=== PATIENT | male | born 1945 | race Caucasian/White ===

== ENCOUNTER → 2022-06-23 09:24 | Outpatient (CLI) | payer MEDICARE, SELFPAY ==
[2022-06-23 11:25] LABS: COVID19 -Nasal RAPID Negative (Negative)
== END ==
PROVIDERS: PCP Family Medicine; Visit Provider Surgery
DX: Z01.812 Encounter for preprocedural laboratory examination (principal); Z20.822 Contact with and (suspected) exposure to COVID-19
CPT/HCPCS: 87635; C9803

== ENCOUNTER 2022-06-24 07:33 | Day surgery (SDC) | payer MEDICARE, SELFPAY ==
--- NOTE | 2022-06-24 | PATH_ITS ---
[facility] Accession Number: [id number] . 01 Material submitted: . PART A: sigmoid colon - SIGMOID POLYP PART B: rectum - RECTAL PART C: rectum - RECTAL POLYP . 01 Diagnosis: A. Sigmoid Colon, Polyp, Biopsy: Hyperplastic polyp. . B. Rectum, Biopsy: Colonic mucosa with no diagnostic abnormality. Negative for active, chronic, and microscopic colitis. Negative for dysplasia and malignancy. . C. Rectum, Polyp, Biopsy: Hyperplastic polyp with features of mucosal prolapse. MRV 06/27/2022 1215 Local . 01 Electronically signed: . Anahi Medina MD, Pathologist NPI- [id number] . 01 Gross description: . A. Received in formalin, labeled with the patient's name, , and sigmoid polyps, and consists of a single irregular dutta soft tissue fragment measuring 0.3 cm in greatest dimension. Submitted entirely in cassette A1. B. Received in formalin, labeled with the patient's name, and rectal biopsies, and consists of five irregular dutta, soft tissue fragments ranging from 0.3 cm to 0.5 cm in greatest dimension. Submitted entirely in cassette B1. C. Received in formalin, labeled with the patient's name, and rectal polyp, and consists of two irregular dutta, soft tissue fragments ranging from 0.2 cm to 0.4 cm in greatest dimension. Submitted entirely in cassette C1. ([id number]) /WILFRED 06/25/20221954 Local . 01 Pathologist provided ICD-10: R19.5, K63.5, K62.1 . 01 CPT . 357366, 378848, 213929 Specimen Comment: A courtesy copy of this report has been sent to [facility] Pathology Performed at: 01 [facility] [address], [place], [place] [id number] MD Romeo Kraus MD Phone: [phone]
[2022-06-24] MEDS: FLEETS ENEMA 1 EACH PR (08:09)
[2022-06-24 08:18] VITALS: BMI 22.5
[2022-06-24 08:26] VITALS: BP 148/88; PULSE 102; RESP 20; TEMP 36.2; O2SAT 95
[2022-06-24] MEDS: LACTATED RINGERS 1,000 ML 42 ML IV ×2 (08:31→10:02)
--- NOTE | 2022-06-24 08:54 | PM.HP.1 ---
History of Present Illness History of Present Illness Chief complaint: [facility] Narrative: Mr. Drake presents today for a screening colonoscopy. Has had a couple of scopes in the past his last 1 was 9 or 10 years ago. Thinks he had 1 polyp, but was given a 10 year follow-up. He has no family history of colon cancer he is not had any bleeding or changes in his bowel movements on occasion he has urgency but otherwise no issues. Not take a fiber supplement or any bowel regimen. Has had an umbilical hernia repair years ago and surgery on his ring finger from a trauma while working at [employer]. He presents today mainly because he has a positive Cologuard test. His PCP is Dr. Erickson in [place] Patient History Family & Social History Social History: household members spouse Tobacco & Substance use: Smoking Status Current every day smoker alcohol intake never Meds Home Medications and Allergies Home Medications Medication Instructions Recorded Confirmed Type sodium,potassium,mag sulfates 17.5 See Rx Instructions PO .COMPLEX 06/14/22 Rx gram-3.13 gram-1.6 gram oral soln #354 mL (Suprep Bowel Prep Kit) albuterol sulfate 90 mcg/actuation 1 puff inhalation BID PRN 06/24/22 06/24/22 History aerosol inhaler (Ventolin HFA) Shortness Of Breath aspirin 81 mg tablet 81 mg PO DAILY 06/24/22 06/24/22 History atorvastatin 10 mg tablet 10 mg PO DAILY 06/24/22 06/24/22 History losartan 25 mg tablet 25 mg PO DAILY 06/24/22 06/24/22 History metformin 500 mg tablet 500 mg PO BID 06/24/22 06/24/22 History niacin 500 mg tablet 500 mg PO QID 06/24/22 06/24/22 History spironolactone 25 mg tablet 25 mg PO BID 06/24/22 06/24/22 History Allergies Allergy/AdvReac Type Severity Reaction Status Date / Time No Known Drug Allergies Allergy Verified 06/24/22 08:06 Exam Vital Signs (past 8 hours): - 06/24/22 08:26 Temperature 97.1 F L Pulse Rate 102 H Respiratory Rate 20 Blood Pressure 148/88 H Pulse Oximetry 95 Oxygen Delivery Method Room Air Oxygen Delivery Method Room Air Const General: cooperative, healthy appearing and comfortable Resp Effort & Inspection: normal respiratory effort and able to speak in complete sentences Cardio Pulses: radial pulses present GI Palpation: soft and No tender Assessment & Plan Assessment and plan (1) Positive colorectal cancer screening using Cologuard test: Status: Acute Assessment & Plan narrative: I discussed the risks benefits and alternatives of a screening colonoscopy in the case of a positive Cologuard test. He understands the benefits. I discussed the risks including but not limited to perforation of the colon and inability to complete an adequate exam. This may be due to poor prep or difficult colon anatomy or finding a polyp too large for me to attempt to remove endoscopically. In this case I usually refer to a more experienced endoscopist if needed though other options sometimes exist. Mr. Drake understands the risks as well and would like to proceed today. Time Spent With Patient Critical Care time: I spent a total of [] minutes of critical care time on this patient's care today; this time is exclusive of procedural time.
[2022-06-24 10:52] VITALS: BP 102/63; PULSE 73; RESP 14; TEMP 36.2; O2SAT 95
[2022-06-24 10:56] VITALS: BP 108/73; PULSE 75; RESP 19; O2SAT 96
[2022-06-24 11:01] VITALS: BP 124/73; PULSE 67; RESP 16; O2SAT 96
[2022-06-24 11:07] VITALS: BP 132/78; PULSE 65; RESP 14; TEMP 36.6; O2SAT 96
--- NOTE | 2022-06-24 11:07 | PM.OP.COLON ---
Operative Date/Time/Diagnoses Date of procedure: 06/24/22 Pre-op diagnosis: Colon cancer screening, positive Cologuard test Post-op diagnosis: same Procedure & Clinicians Study performed: Colonoscopy and biopsy Same procedure as scheduled: Yes Indications: Colon cancer screening, positive Cologuard test. Surgeon: Sophia Lemus Procedure Notes Procedure in detail: Patient was taken to the endoscopy suite and placed in a left lateral decubitus position. Time-out was performed. Monitored anesthetic care was provided. A digital rectal exam was performed. And the colonoscope was then placed into the anal canal and advanced through to the cecum. Photographs were taken of the appendiceal orifice and the ileocecal valve. Throughout the case there was not the best prep: his prep ranged between a [place] bowel prep score of 2 and 3. Photographs were taken of some areas of the colon with solid stool still remaining. Irrigation and suction was used to clean the mucosa in order to obtain an adequate examination and withdrawal time was 30 minutes, not including time used for biopsies. He had scattered diverticula throughout the colon including in his transverse and right sided colon. Several photographs of diverticula were taken. There was a very small polyp seen in the sigmoid colon that was removed with the biopsy forceps and sent for pathology. And in the rectum there were a few small rectal polyps and some areas which could have been hyperplastic mucosa, but were biopsied. If any of these areas come back as adenomatous, I will probably recommend a closer follow-up because I was not confident that I fully removed all of these areas. If they are hyperplastic; he can stay on a 5-10 year screening regimen. Findings: divertiulosis and polyp(s) Specimen(s): other (1/sigmoid polyp 2/rectal polyps) Complications: none
[2022-06-24 11:29] VITALS: BP 136/79; PULSE 63; RESP 16; TEMP 36.6; O2SAT 94
== END 2022-06-24 11:34 | disposition home or self-care (01) ==
PROVIDERS: PCP Family Medicine; Referring Provider Surgery; Visit Provider Surgery
PROC: 0DJD8ZZ Inspection of Lower Intestinal Tract, Via Natural or Artificial Opening Endoscopic (ICD-10-PCS; CPT 45378; principal; 2022-06-24 08:45)
DX: R19.5 Other fecal abnormalities (principal); K63.5 Polyp of colon; K62.1 Rectal polyp
CPT/HCPCS: 45380; J0171; J2704; J3010